=== PATIENT | male | born 1980 | race Caucasian/White ===

== ENCOUNTER 2020-08-09 02:23 | Emergency (ER) | payer SELFPAY ==
[~2020-08-09] VITALS: Ht 177.8 cm; Wt 79.4 kg
[2020-08-09 02:30] VITALS: BP_SYST 137
[2020-08-09] MEDS ORDERED: KETOROLAC TROMETHAMINE 30 MG VIAL IVP ONE (02:45)
[2020-08-09] MEDS ORDERED: NACL 0.9% 1,000 ML IV ONE ×2 (02:45→04:00)
[2020-08-09 03:00] LABS: BASOPHILS # (AUTO) 0.1 K/uL (0.0-0.2); BASOPHILS % (AUTO) 0.4 % (0.0-2.0); EOSINOPHILS % (AUTO) 0.2 % (0.0-4.0); HEMATOCRIT 40.4 % (36-54); HEMOGLOBIN 13.6 g/dL (14.0-18.0); LYMPHOCYTES # (AUTO) 2.3 K/uL (1.0-5.5); MEAN CORPUSCULAR HEMOGLOBIN 29 pg (27-31); MEAN CORPUSCULAR HGB CONC 34 % (32-36); MEAN CORPUSCULAR VOLUME 88 fL (79.0-98.0); MONOCYTES # (AUTO) 0.8 K/uL (0.0-1.0); NEUTROPHILS # (AUTO) 9.8 K/uL (1.8-7.7); NEUTROPHILS % (AUTO) 75.4 % (40.0-70.0); PLATELET COUNT (AUTO) 325 K/uL (130-430); RED BLOOD CELL COUNT(AUTO) 4.61 MIL/uL (4.2-6.2); RED CELL DISTRIBUTION WIDTH 12.2 % (9.0-15.0)
[2020-08-09 03:12] LABS: CALCIUM 8.7 mg/dL (8.4-11.0); CREATININE 0.94 mg/dL (0.55-1.30); POTASSIUM 3.5 mmol/L (3.5-5.1)
[2020-08-09 03:23] LABS: ALBUMIN 3.9 g/dL (3.4-4.8); TOTAL BILIRUBIN 0.6 mg/dL (0.0-1.0)
[2020-08-09 03:56] LABS: BILIRUBIN,URINE NEGATIVE (NEGATIVE); BLOOD, URINE 1+ (NEGATIVE); COLOR,URINE YELLOW (YELLOW); GLUCOSE,URINE NEGATIVE (NEGATIVE); KETONES,URINE 2+ (NEGATIVE); LEUKOCYTE ESTERASE ,URINE TRACE (NEGATIVE); NITRITE, URINE NEGATIVE (NEGATIVE); PROTEIN URINE NEGATIVE (NEGATIVE); UROBILINOGEN,URINE 0.2 (0.2-1.0)
[2020-08-09 03:57] LABS: CLARITY/URINE SLIGHTLY HAZY (CLEAR)
[2020-08-09 04:14] LABS: BACTERIA,URINE FEW /HPF (None Seen)
[2020-08-09] MEDS ORDERED: cefTRIAXone 1 GM in D5W 50 ML IV ONE (04:15)
[2020-08-09] MEDS ORDERED: AZITHROMYCIN 250 MG TABLET PO ONE (04:15)
[2020-08-09 04:28] LABS: BARBITURATE, URINE NEGATIVE (NEG <=200); BENZODIAZEPINE, URINE NEGATIVE (NEG <=150); CANNABINOID, URINE POSITIVE (NEG <=50); COCAINE, URINE NEGATIVE (NEG <=150); METHAMPHETAMINES SCREEN,URINE POSITIVE (NEG <=500); OPIATE, URINE NEGATIVE (NEG <=100); PHENCYCLIDINE SCREEN,URINE POSITIVE (NEG <=25); UR TRICYCLIC ANTIDEPRESSANTS NEGATIVE (NEG <=300); URINE AMPHETAMINE POSITIVE (NEG <=500); URINE METHADONE NEGATIVE (NEG <=200); URINE OXYCODONE SCREEN NEGATIVE (NEG <=100); URINE PROPOXYPHENE SCREEN NEGATIVE (NEG <=300)
[2020-08-09] MEDS ORDERED: cefTRIAXone 1 GM IVPB PREMIX 50 ML IV ONE (04:28)
[2020-08-09] MEDS ORDERED: MOM PO (04:51)
[2020-08-09 05:03] VITALS: BP_SYST 125
== END 2020-08-09 05:03 ==
LOC: SED 02:23
DX: E86.0 Dehydration (principal); R30.0 Dysuria; F12.10 Cannabis abuse, uncomplicated; Z79.899 Other long term (current) drug therapy
CPT/HCPCS: 36415; 74021; 80053; 80307; 81000; 83690; 85025; 87040; 87086; 87491; 87591; 96361; 96365; 96375; 99284; J0696; J1885; J7030; Q0144